=== PATIENT | female | born 1950 | race Caucasian/White ===

== ENCOUNTER 2019-03-27 08:33 | Inpatient (IN) | payer MEDICARE, MEDICAID ==
[~2019-03-27] VITALS: Ht 170.2 cm; Wt 102.3 kg
[~2019-03-27 08:33] MED LIST: ACET-3068 PO; CLA10T PO; GABA-338 PO; LOP25T PO; SERT-153 PO; [UNRECOGNIZED DRUG - CODE] PO; multivitamin
[2019-03-27 09:07] LABS: BASOPHILS # (AUTO) 0.1 X10'3 (0-0.2); BASOPHILS % (AUTO) 0.5 % (0-1); EOSINOPHILS # (AUTO) 0.4 X10'3 (0-0.9); EOSINOPHILS % (AUTO) 4.3 % (0-6); HEMOGLOBIN 12.8 g/dl (12.0-16.0); LYMPHOCYTES # (AUTO) 1.6 X10'3 (1.1-4.8); LYMPHOCYTES % (AUTO) 15.4 % (21-51); MEAN CORPUSCULAR HGB CONC 33.6 g/dL (33.0-36.5); MEAN CORPUSCULAR VOLUME 92.2 FL (78-98); MEAN PLATELET VOLUME 7.7 FL (7.4-10.4); MONOCYTES # (AUTO) 0.4 X10'3 (0-0.9); MONOCYTES % (AUTO) 3.7 % (2-12); NEUTROPHILS # (AUTO) 7.8 X10'3 (1.8-7.7); NEUTROPHILS % (AUTO) 76.1 % (42-75); PLATELET COUNT 153 X10'3 (140-440); RED BLOOD COUNT 4.13 X10'6 (4.20-5.60); RED CELL DISTRIBUTION WIDTH 15.4 % (11.5-14.5); WHITE BLOOD COUNT 10.2 X10'3 (4.5-11.0)
[2019-03-27 09:16] LABS: PARTIAL THROMBOPLASTIN TIME 28 SECONDS (22-32)
[2019-03-27 09:18] LABS: ALANINE AMINOTRANSFERASE 20 U/L (12-78); ALBUMIN 3.1 G/DL (3.4-5.0); ALBUMIN/GLOBULIN RATIO 0.8 (1.1-1.5); ALKALINE PHOSPHATASE 71 IU/L (46-116); ANION GAP 13 (8-16); ASPARTATE AMINO TRANSFERASE 12 U/L (10-37); BILIRUBIN,TOTAL 0.4 MG/DL (0.1-1.0); BLOOD UREA NITROGEN 27 MG/DL (7-18); BUN/CREATININE RATIO 20.1 (6.6-38.0); CALCIUM 8.5 MG/DL (8.5-10.1); CHLORIDE 105 MMOL/L (99-107); CREATININE 1.34 MG/DL (0.40-0.90); GLUCOSE 231 MG/DL (70-104); SODIUM 140 MMOL/L (135-145); TOTAL CARBON DIOXIDE 21.7 MMOL/L (24-32); eGFR 39 ML/MIN
[2019-03-27 09:20] LABS: POTASSIUM 4.1 MMOL/L (3.5-5.1)
[2019-03-27] MEDS ORDERED: ipratropium/albuterol 3ml nebule NEB ONE (10:15)
[2019-03-27] MEDS ORDERED: albuterol 2.5 MG/3 ML nebule NEB ONE (10:15)
[2019-03-27] MEDS ORDERED: enoxaparin 100mg/ml syringe SUBCUT STA (10:18)
[2019-03-27] MEDS ORDERED: morphine 2 MG/ML inj. syringe IV PRN ×2 (10:20)
[2019-03-27] MEDS ORDERED: HYDROcodone/acetaminophen 5mg/325mg tablet PO PRN (10:20)
[2019-03-27] MEDS ORDERED: ondansetron/PF 4mg/2ml inj IV PRN (10:20)
[2019-03-27] MEDS ORDERED: nitroGLYCERIN 0.4mg SUBLingual tab SL PRN (10:20)
[2019-03-27] MEDS ORDERED: magnesium hydroxide 30ml (MOM) UD suspension PO PRN (10:20)
[2019-03-27] MEDS ORDERED: acetaminophen 325mg tablet PO PRN ×2 (10:20)
[2019-03-27] MEDS ORDERED: mag hydrox/Alum hydrox/simeth 30ml oral suspension PO PRN (10:20)
--- NOTE | 2019-03-27 10:51 | NUR ---
ECHO AT BEDSIDE.
[2019-03-27 10:58] LABS: D-DIMER 1.42 MG/L FEU (0-0.50)
--- NOTE | 2019-03-27 11:30 | NUR ---
Pt arrived to Unit room 311 via ER gurgem. monitoring and evaluation advisor in place. Pt transfered self to hospital bed. All known belongings with pt.
--- NOTE | 2019-03-27 11:53 | NUR ---
PAGER ID: [phone] MESSAGE: Dr. Platt, we received pt Rico into room 311. Her bp is elevated (183/95). She has not had her home BP med. I just did the med rec for you. Can I please have a bp med for her? Thanks! Art, [phone]
--- NOTE | 2019-03-27 12:04 | NUR ---
PAGER ID: [phone] MESSAGE: pt Irene Teran rm 311 6hr Trop. 0.48 this is up from 0.2. Current BP 200/81 HR 90. Please advise. SOCO Mays ext [phone]
[2019-03-27] MEDS: gabapentin 300mg capsule PO SCH ×2 (12:51→21:30)
[2019-03-27] MEDS: nitroGLYCERIN 0.4mg/hour patch TD SCH (12:53)
[2019-03-27] MEDS: metoprolol tartrate 25mg tablet PO SCH ×2 (13:07→21:29)
[2019-03-27] MEDS: furosemide 40mg/4ml inj IV SCH ×2 (13:07→21:27)
[2019-03-27 15:00] VITALS: BP 167/86
--- NOTE | 2019-03-27 15:20 | NUR ---
PAGER ID: [phone] MESSAGE: Dr. Platt, pt Jeffry's Trop is 0.94. Art, [phone]
--- NOTE | 2019-03-27 17:09 | NUR ---
PAGER ID: [phone] MESSAGE: Dr. Platt, pt Jeffry in 313 is still having HTN. Currently, she is 177/141. Can I get a PRN order? Art, [phone]
[2019-03-27] MEDS ORDERED: cloNIDine 0.1 mg tablet PO ONE (17:35)
--- NOTE | 2019-03-27 17:45 | NUR ---
Spoke with Dr. Platt and received orders. He told me to attempt to reach Dr. Valles as he apparently has seen this pt in the past. I did call the office and they were closed. Pt made NPO after midnight.
--- NOTE | 2019-03-27 17:52 | NUR ---
Orientee documentation: I have reviewed and agree with all interventions, assessments performed and documented by SOCO Mays .
[2019-03-27 18:00] VITALS: BP 186/88
--- NOTE | 2019-03-27 18:15 | NUR ---
Patient in room MED 311. I have received report from ShahzadRN and SOCO Mays (orienteer) and had the opportunity to ask questions and assume patient care.
--- NOTE | 2019-03-27 18:18 | NUR ---
Problems reprioritized. Patient report given, questions answered & plan of care reviewed with SOCO Glynn.
[2019-03-27 18:30] VITALS: BP 127/55
--- NOTE | 2019-03-27 21:52 | NUR ---
Spoke to Dr. Gonzales regarding elevated troponin of 1.77, trending up. New orders for Lovenox now and then BID. See EMAR.
[2019-03-27 22:00] VITALS: BP 182/95
[2019-03-27] MEDS ORDERED: enoxaparin 100mg/ml syringe SUBCUT SCH (22:10)
[2019-03-28] VITALS (7 sets, daily range): BP systolic 128–166; BP diastolic 55–76
[2019-03-28] MEDS ORDERED: dextrose 50%-water 50ml dispensing syringe IV PRN ×2 (03:50)
[2019-03-28] MEDS ORDERED: MESSAGE TO PHARMACY PO ONE (03:50)
[2019-03-28] MEDS ORDERED: dextrose ORAL solution 15 GM/59 ML bottle PO PRN ×2 (03:50)
[2019-03-28] MEDS ORDERED: glucagon, human recombinant 1mg kit SUBCUT PRN (03:50)
--- NOTE | 2019-03-28 06:28 | NUR ---
Problems reprioritized. Patient report given, questions answered & plan of care reviewed with SOCO Tolentino.
[2019-03-28 06:33] LABS: BASOPHILS # (AUTO) 0.1 X10'3 (0-0.2); BASOPHILS % (AUTO) 0.8 % (0-1); EOSINOPHILS # (AUTO) 0.6 X10'3 (0-0.9); EOSINOPHILS % (AUTO) 8.9 % (0-6); HEMATOCRIT 32.1 % (35.0-45.0); HEMOGLOBIN 11.1 g/dl (12.0-16.0); LYMPHOCYTES # (AUTO) 1.4 X10'3 (1.1-4.8); LYMPHOCYTES % (AUTO) 22.1 % (21-51); MEAN CORPUSCULAR HEMOGLOBIN 31.2 PG (27.0-31.0); MEAN CORPUSCULAR HGB CONC 34.4 g/dL (33.0-36.5); MEAN CORPUSCULAR VOLUME 90.7 FL (78-98); MEAN PLATELET VOLUME 8.2 FL (7.4-10.4); MONOCYTES # (AUTO) 0.5 X10'3 (0-0.9); NEUTROPHILS # (AUTO) 3.9 X10'3 (1.8-7.7); NEUTROPHILS % (AUTO) 60.2 % (42-75); PLATELET COUNT 117 X10'3 (140-440); RED BLOOD COUNT 3.54 X10'6 (4.20-5.60); RED CELL DISTRIBUTION WIDTH 14.9 % (11.5-14.5); WHITE BLOOD COUNT 6.5 X10'3 (4.5-11.0)
[2019-03-28 06:40] LABS: ALBUMIN 2.7 G/DL (3.4-5.0); ANION GAP 9 (8-16); BLOOD UREA NITROGEN 31 MG/DL (7-18); BUN/CREATININE RATIO 20.8 (6.6-38.0); CALCIUM 8.3 MG/DL (8.5-10.1); CHLORIDE 103 MMOL/L (99-107); CHOL/HDL RATIO 8.6 (0.00-4.99); CHOLESTEROL 319 MG/DL (0-200); CREATININE 1.49 MG/DL (0.40-0.90); GLUCOSE 174 MG/DL (70-104); HDL CHOLESTEROL 37 MG/DL (35-60); LDL CHOLESTEROL 121 MG/DL (50-100); POTASSIUM 3.8 MMOL/L (3.5-5.1); SODIUM 140 MMOL/L (135-145); TOTAL CARBON DIOXIDE 28.4 MMOL/L (24-32); TRIGLYCERIDES 450 MG/DL (20-135); eGFR 35 ML/MIN
[2019-03-28] MEDS: nitroGLYCERIN 0.4mg/hour patch TD SCH (08:00)
[2019-03-28] MEDS ORDERED: nitroGLYCERIN 0.4mg/hour patch TD SCH (08:00)
[2019-03-28] MEDS ORDERED: heparin 25,000 UNIT/250ml bag 250 ML IV SCH (08:08)
[2019-03-28] MEDS ORDERED: heparin 10,000 units/1 ML INJ IV ONE (08:10)
[2019-03-28] MEDS ORDERED: heparin 10,000 units/1 ML INJ IV PRN (08:10)
[2019-03-28 08:56] LABS: BASOPHILS # (AUTO) 0.1 X10'3 (0-0.2); EOSINOPHILS # (AUTO) 0.7 X10'3 (0-0.9); EOSINOPHILS % (AUTO) 8.7 % (0-6); HEMATOCRIT 37.1 % (35.0-45.0); HEMOGLOBIN 12.5 g/dl (12.0-16.0); LYMPHOCYTES # (AUTO) 1.9 X10'3 (1.1-4.8); LYMPHOCYTES % (AUTO) 24.3 % (21-51); MEAN CORPUSCULAR HGB CONC 33.8 g/dL (33.0-36.5); MEAN CORPUSCULAR VOLUME 91.7 FL (78-98); MEAN PLATELET VOLUME 7.9 FL (7.4-10.4); MONOCYTES # (AUTO) 0.4 X10'3 (0-0.9); MONOCYTES % (AUTO) 5.2 % (2-12); NEUTROPHILS # (AUTO) 4.8 X10'3 (1.8-7.7); NEUTROPHILS % (AUTO) 60.8 % (42-75); PLATELET COUNT 181 X10'3 (140-440); RED BLOOD COUNT 4.04 X10'6 (4.20-5.60); RED CELL DISTRIBUTION WIDTH 14.9 % (11.5-14.5)
[2019-03-28] MEDS: sertraline 50mg tablet PO SCH (09:22)
[2019-03-28] MEDS: furosemide 40mg/4ml inj IV SCH ×2 (09:23→20:53)
[2019-03-28] MEDS: metoprolol tartrate 25mg tablet PO SCH ×2 (09:23→20:49)
[2019-03-28] MEDS: gabapentin 300mg capsule PO SCH ×3 (09:23→20:52)
[2019-03-28] MEDS: aspirin 81mg tablet.DR PO SCH (09:23)
[2019-03-28 09:48] LABS: PARTIAL THROMBOPLASTIN TIME 35 SECONDS (22-32)
--- NOTE | 2019-03-28 11:00 | NUR ---
DR. SKELTON ROUNDED ON PATIENT, EDUCATED PATIENT ON HEART CATHETERIZATION, PATIENT REFUSED HEART CATH AND DECIDED TO PROCEED WITH MEDICAL MANAGEMENT.
[2019-03-28] MEDS ORDERED: isosorbide mononitrate 30mg tab.SR.24H PO ONE (11:50)
[2019-03-28] MEDS ORDERED: atorvastatin 20mg tablet PO SCH ×2 (12:00→21:00)
[2019-03-28] MEDS: insulin Lispro (HumaLOG) vial - multi-dose SQ SCH ×2 (12:59→19:32)
--- NOTE | 2019-03-28 14:30 | NUR ---
RIGHT BREAST REDNESS UNDER THE RIGHT BREAST, MOIST AND RED. PATIENT REPORTS IT IS PAINFUL AND WAS PRESENT ON ADMISSION. WOUND CARE CONSULT WILL BE ORDERED. INTERDRY PLACED UNDER BREAST. NYSTATIN POWDER ORDERED.
--- NOTE | 2019-03-28 14:36 | NUR ---
paged Dr. Platt about cath refusal "Re: Jeffry, in 311. William saw this patient and she does not want a heart cath, therefore he is adjusting her meds. maybe Amparo tomorrow? not sure. Thank you, Randa SÁNCHEZ [phone]"
--- NOTE | 2019-03-28 15:34 | NUR ---
DM consult: Pt with A1c 7.0 seen at bedside provided with written DM education with referral to outpatient DM class and RD contact information. Pt endorses a good appetite which is evident with documented 75-100% PO intake on heart healthy CHO controlled diet meeting nutrient needs. Pt reports food allergy to eggs and requests no pineapple or black pepper, d/w dietary. Pt with missing bottom teeth however denies need for texture modification at this time. Pt denies constipation/diarrhea. [facility] 03/27. Will continue to follow. Addendum: 03/28/19 at [address] Amended: Links added.
--- NOTE | 2019-03-28 18:26 | NUR ---
Problems reprioritized. Patient report given, questions answered & plan of care reviewed with Matt WAN.
[2019-03-28] MEDS ORDERED: regadenoson 0.4mg/5ml syringe IV ONE (20:15)
[2019-03-28] MEDS ORDERED: metoprolol tartrate 1mg/ml inj IV PRN (20:15)
[2019-03-28] MEDS ORDERED: nitroGLYCERIN 0.4mg SUBLingual tab SL PRN (20:15)
[2019-03-28] MEDS ORDERED: aminophylline 250mg/10ml inj. IV PRN (20:15)
--- NOTE | 2019-03-28 20:15 | NUR ---
DR. SKELTON HERE. ORDERS FOR LEXISCAN IN THE MORNING
[2019-03-28] MEDS: nystatin 15 GM powder TP SCH (20:53)
[2019-03-28] MEDS: clopidogrel 75mg tablet PO SCH (20:53)
[2019-03-28] MEDS ORDERED: insulin glargine (Lantus) pen - multi-dose SQ SCH (21:00)
[2019-03-29 03:00] VITALS: BP 154/67
[2019-03-29 05:02] LABS: BASOPHILS % (AUTO) 0.5 % (0-1); EOSINOPHILS # (AUTO) 0.7 X10'3 (0-0.9); EOSINOPHILS % (AUTO) 10.8 % (0-6); HEMATOCRIT 30.6 % (35.0-45.0); HEMOGLOBIN 10.4 g/dl (12.0-16.0); LYMPHOCYTES # (AUTO) 1.6 X10'3 (1.1-4.8); LYMPHOCYTES % (AUTO) 25.2 % (21-51); MEAN CORPUSCULAR HEMOGLOBIN 31.3 PG (27.0-31.0); MEAN CORPUSCULAR HGB CONC 34.1 g/dL (33.0-36.5); MEAN PLATELET VOLUME 7.7 FL (7.4-10.4); MONOCYTES # (AUTO) 0.5 X10'3 (0-0.9); MONOCYTES % (AUTO) 7.8 % (2-12); NEUTROPHILS # (AUTO) 3.5 X10'3 (1.8-7.7); NEUTROPHILS % (AUTO) 55.7 % (42-75); PLATELET COUNT 112 X10'3 (140-440); RED BLOOD COUNT 3.32 X10'6 (4.20-5.60); RED CELL DISTRIBUTION WIDTH 15.1 % (11.5-14.5); WHITE BLOOD COUNT 6.4 X10'3 (4.5-11.0)
[2019-03-29 05:26] LABS: ALANINE AMINOTRANSFERASE 21 U/L (12-78); ALBUMIN 2.8 G/DL (3.4-5.0); ALBUMIN/GLOBULIN RATIO 0.8 (1.1-1.5); ALKALINE PHOSPHATASE 56 IU/L (46-116); ANION GAP 10 (8-16); ASPARTATE AMINO TRANSFERASE 20 U/L (10-37); BILIRUBIN,TOTAL 0.5 MG/DL (0.1-1.0); BLOOD UREA NITROGEN 42 MG/DL (7-18); BUN/CREATININE RATIO 23.7 (6.6-38.0); CALCIUM 8.2 MG/DL (8.5-10.1); CHLORIDE 100 MMOL/L (99-107); CREATININE 1.77 MG/DL (0.40-0.90); GLUCOSE 158 MG/DL (70-104); POTASSIUM 3.7 MMOL/L (3.5-5.1); SODIUM 138 MMOL/L (135-145); TOTAL CARBON DIOXIDE 28.5 MMOL/L (24-32); TOTAL PROTEIN 6.2 G/DL (6.4-8.2); eGFR 28 ML/MIN
[2019-03-29 06:00] VITALS: BP 146/54
--- NOTE | 2019-03-29 06:10 | NUR ---
Patient in room MED 311. I have received report from ARA WAN and had the opportunity to ask questions and assume patient care.
[2019-03-29] MEDS ORDERED: isosorbide mononitrate 30mg tab.SR.24H PO SCH ×2 (08:00)
[2019-03-29] MEDS ORDERED: lisinopril 5mg tablet PO SCH (08:00)
[2019-03-29] MEDS ORDERED: METO25TA6 PO (08:10)
[2019-03-29] MEDS ORDERED: LISI-642 PO (08:10)
[2019-03-29] MEDS ORDERED: GLIP2.5T3 PO (08:10)
[2019-03-29] MEDS ORDERED: ISOS30TA6 PO (08:10)
[2019-03-29] MEDS ORDERED: FURO-150 PO (08:10)
[2019-03-29] MEDS ORDERED: ATOR20TA66 PO (08:10)
[2019-03-29] MEDS ORDERED: NITR0.4T51 SL (08:10)
[2019-03-29] MEDS ORDERED: ASPI-1071 PO (08:10)
[2019-03-29] MEDS: sertraline 50mg tablet PO SCH (08:40)
[2019-03-29] MEDS: metoprolol tartrate 25mg tablet PO SCH (08:40)
[2019-03-29] MEDS: clopidogrel 75mg tablet PO SCH (08:41)
[2019-03-29] MEDS: gabapentin 300mg capsule PO SCH ×2 (08:41→13:55)
[2019-03-29] MEDS: furosemide 40mg/4ml inj IV SCH (08:41)
[2019-03-29] MEDS: aspirin 81mg tablet.DR PO SCH (08:41)
[2019-03-29] MEDS: nystatin 15 GM powder TP SCH ×2 (08:41→13:55)
--- NOTE | 2019-03-29 10:00 | NUR ---
CONFIRMED WITH DR. KELLEY WHETHER VQ WAS NECESSARY SINCE D-DIMER WAS ELEVATED, STATES NO SHE DOESN'T NEED IT.
[2019-03-29] MEDS: insulin Lispro (HumaLOG) vial - multi-dose SQ SCH ×2 (10:53→14:01)
--- NOTE | 2019-03-29 12:14 | NUR ---
Dr. Monk office called and stated he won't accept the patient, will call patient's primary MD to make appointment for follow-up.
--- NOTE | 2019-03-29 12:15 | NUR ---
Called Dr Valles's office to arrange a follow up appointment. The patient has never been seen there, and would require a referral. Called Dr Slade, the patient's primary care physician at [facility] in [place]. Left voicemail trying to arrange follow up appointment. Awaiting call back.
--- NOTE | 2019-03-29 14:05 | NUR ---
WOC went to see pt in regards to Rash under RIGHT BREAST. Upon examination pt's rash actually seems to be improving VS the photo in the chart. Wound is being treated accordingly with Nystatin and Interdry sheets. WOC will continue to monitor but agrees with current therapy.
--- NOTE | 2019-03-29 14:45 | NUR ---
Patient discharged at this time to [facility] without event, where she is waiting her ride via W/C per [facility] staff, discussed discharge instructions and educated on admitting diagnosis etc, IV removed and tele dc'd, belongings sent with patient, BP stable, intermodal owner operator truck driver to transport her home. [facility] delivered medications to bedside.
[2019-03-29 14:52] VITALS: BP 113/48
== END 2019-03-29 14:45 | disposition home or self-care (01) | DRG 280 ==
LOC: ER 08:33 → MED 3N 11:32 → CMPBEDREQ 19:26
PROVIDERS: ADMIT Internal Medicine; ATTEND Internal Medicine
DX: I21.4 Non-ST elevation (NSTEMI) myocardial infarction (principal); I50.41 Acute combined systolic (congestive) and diastolic (congestive) heart failure; Z68.41 Body mass index [BMI] 40.0-44.9, adult; J44.1 Chronic obstructive pulmonary disease with (acute) exacerbation; I13.0 Hypertensive heart and chronic kidney disease with heart failure and stage 1 through stage 4 chronic kidney disease, or unspecified chronic kidney disease; E66.01 Morbid (severe) obesity due to excess calories; N18.3 Chronic kidney disease, stage 3 (moderate); R06.03 Acute respiratory distress; F32.9 Major depressive disorder, single episode, unspecified; E11.42 Type 2 diabetes mellitus with diabetic polyneuropathy; E11.22 Type 2 diabetes mellitus with diabetic chronic kidney disease; E78.5 Hyperlipidemia, unspecified; I27.20 Pulmonary hypertension, unspecified; M19.90 Unspecified osteoarthritis, unspecified site; F12.90 Cannabis use, unspecified, uncomplicated; Z79.02 Long term (current) use of antithrombotics/antiplatelets; Z87.891 Personal history of nicotine dependence; Z82.49 Family history of ischemic heart disease and other diseases of the circulatory system; Z90.49 Acquired absence of other specified parts of digestive tract; Z79.82 Long term (current) use of aspirin; Z88.4 Allergy status to anesthetic agent; Z91.012 Allergy to eggs; Z88.8 Allergy status to other drugs, medicaments and biological substances; Z91.048 Other nonmedicinal substance allergy status; Z79.899 Other long term (current) drug therapy; Z53.29 Procedure and treatment not carried out because of patient's decision for other reasons
CPT/HCPCS: 36415; 71045; 80048; 80053; 80061; 82948; 83036; 83880; 84484; 85025; 85379; 85610; 85730; 87081; 93005; 93306; 94640; 94760; 99285; A9500; G0378; J1644; J1650; J1815; J1940

== ENCOUNTER 2019-04-04 19:46 | Emergency (ER) | payer MEDICARE, MEDICAID ==
[~2019-04-04] VITALS: Ht 170.2 cm; Wt 108.0 kg
[~2019-04-04 19:46] MED LIST changes: +ASPI-1071 PO; +ATOR20TA66 PO; -CLA10T PO; +FURO-150 PO; +GLIP2.5T3 PO; +ISOS30TA6 PO; +LISI-642 PO; -LOP25T PO; +METO25TA6 PO; +NITR0.4T51 SL
[2019-04-04 20:26] LABS: BASOPHILS % (AUTO) 0.4 % (0-1); EOSINOPHILS # (AUTO) 0.7 X10'3 (0-0.9); EOSINOPHILS % (AUTO) 8.2 % (0-6); HEMATOCRIT 31.7 % (35.0-45.0); HEMOGLOBIN 10.8 g/dl (12.0-16.0); LYMPHOCYTES # (AUTO) 0.8 X10'3 (1.1-4.8); LYMPHOCYTES % (AUTO) 9.8 % (21-51); MEAN CORPUSCULAR HEMOGLOBIN 31.3 PG (27.0-31.0); MEAN CORPUSCULAR HGB CONC 34.1 g/dL (33.0-36.5); MEAN CORPUSCULAR VOLUME 91.6 FL (78-98); MEAN PLATELET VOLUME 7.7 FL (7.4-10.4); MONOCYTES # (AUTO) 0.6 X10'3 (0-0.9); MONOCYTES % (AUTO) 6.7 % (2-12); NEUTROPHILS # (AUTO) 6.4 X10'3 (1.8-7.7); NEUTROPHILS % (AUTO) 74.9 % (42-75); PLATELET COUNT 160 X10'3 (140-440); RED BLOOD COUNT 3.46 X10'6 (4.20-5.60); RED CELL DISTRIBUTION WIDTH 14.7 % (11.5-14.5); WHITE BLOOD COUNT 8.6 X10'3 (4.5-11.0)
[2019-04-04 20:35] LABS: ALANINE AMINOTRANSFERASE 25 U/L (12-78); ALBUMIN 3.1 G/DL (3.4-5.0); ALBUMIN/GLOBULIN RATIO 0.8 (1.1-1.5); ALKALINE PHOSPHATASE 77 IU/L (46-116); ANION GAP 7 (8-16); ASPARTATE AMINO TRANSFERASE 20 U/L (10-37); BILIRUBIN,TOTAL 0.6 MG/DL (0.1-1.0); BLOOD UREA NITROGEN 42 MG/DL (7-18); BUN/CREATININE RATIO 25.6 (6.6-38.0); CALCIUM 8.4 MG/DL (8.5-10.1); CHLORIDE 101 MMOL/L (99-107); CREATININE 1.64 MG/DL (0.40-0.90); GLUCOSE 164 MG/DL (70-104); POTASSIUM 5.2 MMOL/L (3.5-5.1); SODIUM 139 MMOL/L (135-145); TOTAL CARBON DIOXIDE 30.9 MMOL/L (24-32); TOTAL PROTEIN 7.1 G/DL (6.4-8.2); eGFR 31 ML/MIN
[2019-04-04 20:36] LABS: PARTIAL THROMBOPLASTIN TIME 32 SECONDS (22-32)
[2019-04-04] MEDS ORDERED: furosemide 10 MG/1 ML 10ml inj IV ONE (22:00)
[2019-04-04] MEDS ORDERED: furosemide 20 MG/2 ML vial IV ONE (22:10)
--- NOTE | 2019-04-04 23:04 | NUR ---
pt bp high dose of lasix given as per md orders .before d/c,pt dc instruction given to the pt .pt is not ready for angiogram does not look complaint .pt iv removed denies nay concern,cab called for the pt waiting in lobby.
[2019-04-04 23:08] VITALS: BP 200/79
== END 2019-04-04 23:09 | disposition home or self-care (01) ==
LOC: ER 19:48
DX: R06.02 Shortness of breath (principal); R42 Dizziness and giddiness; I10 Essential (primary) hypertension; J45.909 Unspecified asthma, uncomplicated; E11.9 Type 2 diabetes mellitus without complications; F32.9 Major depressive disorder, single episode, unspecified; F12.90 Cannabis use, unspecified, uncomplicated; Z90.49 Acquired absence of other specified parts of digestive tract; Z87.891 Personal history of nicotine dependence; Z56.0 Unemployment, unspecified; Z91.012 Allergy to eggs; Z79.82 Long term (current) use of aspirin; Z79.899 Other long term (current) drug therapy
CPT/HCPCS: 36415; 71045; 80053; 83880; 84484; 85025; 85610; 85730; 93005; 96374; 99284; J1940